=== PATIENT | female | born 1945 | race Caucasian/White ===

== ENCOUNTER 2018-09-01 09:24 | Day surgery (SDC) | payer OTHER | END 2018-09-01 12:50 | disposition home or self-care (01) | LOC: AMB-ENDOS 09:24 | DX: K64.1 Second degree hemorrhoids (principal) ==

== ENCOUNTER 2021-05-15 05:50 | Day surgery (SDC) | payer OTHER | END 2021-05-15 09:50 | disposition home or self-care (01) | LOC: AMB-ENDOS 05:50 → EDBD 14:00 → AMB-ENDOS 14:00 | PROVIDERS: ATTEND Colon & Rectal Surgery | DX: K62.89 Other specified diseases of anus and rectum (principal); K64.2 Third degree hemorrhoids ==